=== PATIENT | male | born 1950 | race Caucasian/White ===

== ENCOUNTER 2020-04-12 13:01 | Outpatient (CLI) | payer OTHER, SELFPAY ==
[2020-04-14 13:04] LABS: COVID-19 RT-PCR Result NEGATIVE (Negative)
== END 2020-04-12 13:21 ==
PROVIDERS: PCP Family Medicine; Visit Provider Physician Assistant
DX: Z11.59 Encounter for screening for other viral diseases (principal)
CPT/HCPCS: U0003

== ENCOUNTER → 2020-12-26 11:27 | Outpatient (BNVA) | payer MEDICARE, SELFPAY | PROVIDERS: PCP Family Medicine; Referring Provider Family Medicine; Visit Provider Student in an Organized Health Care Education/Training Program | DX: S76.012A Strain of muscle, fascia and tendon of left hip, initial encounter (principal); X50.9XXA Other and unspecified overexertion or strenuous movements or postures, initial encounter; M16.0 Bilateral primary osteoarthritis of hip | CPT/HCPCS: 99204; 73502 ==

== ENCOUNTER 2020-12-26 13:33 | Outpatient (CLI) | payer MEDICARE, SELFPAY ==
--- NOTE | 2020-12-26 11:30 | DI.RAD_ITS ---
EXAM: XR HIP LT COMPLETE AP PELVIS CLINICAL HISTORY: hip pain TECHNIQUE: COMPARISON: No exams were available for comparison FINDINGS: Three views were obtained. There appears to be disc space narrowing at L4-5 and L5-S1 with prominent hypertrophic changes of the vertebral endplates and facet joints at these levels. There are mild-to -moderate degenerative changes of the SI joints bilaterally. There is severe loss of the cartilagino us joint space of the right hip and moderate loss of cartilaginous joint space of the left hip. Mode rate marginal osteophyte formation noted involving the acetabula and femoral heads bilaterally. Slig ht subchondral sclerosis also noted bilaterally associated with the hip joints. 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 RADIATION DOSE DELIVERED: Total DLP
== END 2020-12-26 13:34 | disposition home or self-care (01) ==
LOC: DIORS 13:34
PROVIDERS: PCP Family Medicine; Visit Provider Student in an Organized Health Care Education/Training Program
DX: M16.0 Bilateral primary osteoarthritis of hip (principal)
CPT/HCPCS: 73502

== ENCOUNTER 2021-01-05 11:41 | Outpatient (CLI) | payer MEDICARE, SELFPAY ==
--- NOTE | 2021-01-05 12:35 | DI.MRI_ITS ---
EXAM: MR LOWER JOINT LT WO CLINICAL HISTORY: left hip pain,STRAIN FLEXOR MUSCLE,S76.012A,M16.0,BILAT OA. TECHNIQUE: Multiplanar multisequence MRI was performed. COMPARISON: CR XR HIP LT COMPLETE AP PELVIS from 12/26/2020 FINDINGS: BONES: There is no fracture or contusion pattern. JOINTS: There are degenerative changes seen at the hips bilaterally with joint space narrowing, artic ular cartilage loss and subchondral edema. Periarticular spurring is also noted. There is a small a mount of fluid in the left hip joint. TENDONS:Unremarkable. There are 2 cyst associated with the distal aspect of the left iliopsoas tendon . The largest measures 1.8 x 1.2 cm cyst. MUSCLES: Muscles show normal signal and size. MENISCI: The medial meniscus is unremarkable. The lateral meniscus is unremarkable. SOFT TISSUES: No soft tissue mass or focal fluid collection is seen. There is a 1.7 cm dystrophic os sification anterior and lateral to the femoral head. This corresponds to the density seen on the x-r ay of the hip from 12/26/2020. It does show hyperintense signal on the T2 weighted images internally. There is mild edema seen in the adjacent soft tissues. LIGAMENTS:There is no evidence of a ligament tear. OTHER: IMPRESSION: 1. Degenerative changes of the hips bilaterally. 2. Two cysts associated with the distal aspect of the iliopsoas tendon. The largest measures 1.8 x 1 .2 cm. These may represent small ganglion cyst. No evidence of a tendon tear. 3. 1.7 cm dystrophic ossification anterior lateral to the left femoral head. This corresponds to the density seen on the x-ray of the hip from 12/26/2020. 4. Small left hip joint effusion. DATA REPOSITORY:
== END 2021-01-05 12:01 ==
PROVIDERS: PCP Family Medicine; Visit Provider Physician Assistant
DX: M25.552 Pain in left hip (principal); M25.452 Effusion, left hip; M16.0 Bilateral primary osteoarthritis of hip
CPT/HCPCS: 73721

== ENCOUNTER 2021-04-03 13:58 | Outpatient (CLI) | payer MEDICARE, SELFPAY ==
--- NOTE | 2021-04-03 13:45 | RT.EKG_ITS ---
APPROVED REPORT Exam: Resting ECG Reason for Exam: Irregular heart rate shown on self-monitor Patient Location: O HR:53 bpm ECG Measurements Heart Rate 53 AXIS WI 37 P 116 QRSd 92 QRS 41 QT 468 T 20 QTc 441 Conclusion Sinus bradycardia...rate< 60
== END 2021-04-03 13:59 | disposition home or self-care (01) ==
LOC: DI.CM 14:04
PROVIDERS: PCP Family Medicine; Visit Provider Family Medicine
DX: I49.9 Cardiac arrhythmia, unspecified (principal)
CPT/HCPCS: 93010

== ENCOUNTER 2021-04-03 18:26 | Outpatient (REF) | payer MEDICARE, SELFPAY ==
[2021-04-03 19:35] LABS: HCT 42.1 % (40.0-50.0); HGB 14.1 g/dL (13.5-17.5); MCH 31.3 pg (27.0-33.0); MCHC 33.5 % (32.0-36.0); MCV 93.3 fL (80-95); MPV 10.7 fL (8.0-11.0); Platelet Count 219 10^3/uL (130-400); RBC 4.51 10^6/uL (4.36-5.78); RDW 12.2 % (11.8-14.1); RDW-SD 42.3 fL; WBC 4.96 10^3/uL (4.4-10.8)
[2021-04-03 19:54] LABS: ALT 32 U/L (16-63); AST 27 U/L (15-37); Albumin 4.2 g/dL (3.4-5.0); Alkaline Phosphatase 69 U/L (46-116); Anion Gap 9.2 mmol/L (3-11); BUN 21 mg/dL (7-18); CO2 25.8 mmol/L (21.0-32.0); CREATININE 1.2 mg/dL (0.70-1.30); Calcium 8.9 mg/dL (8.5-10.1); Chloride 107 mmol/L (98-107); Estimated GFR 59.86 (mL/min/1.73m2); Glucose 90 mg/dL (74-106); Potassium 4.5 mmol/L (3.5-5.1); Sodium 142 mmol/L (136-145); Total Protein 6.7 g/dL (6.4-8.2)
== END 2021-04-03 18:27 | disposition home or self-care (01) ==
LOC: LBN 18:26
PROVIDERS: PCP Family Medicine; Visit Provider Family Medicine
DX: R42 Dizziness and giddiness (principal); I49.9 Cardiac arrhythmia, unspecified; I10 Essential (primary) hypertension
CPT/HCPCS: 80053; 85027; 84443

== ENCOUNTER 2021-04-10 03:25 | Outpatient (RCR) | payer MEDICARE, SELFPAY ==
--- NOTE | 2021-04-10 09:00 | HOLTER_ITS ---
APPROVED REPORT Conclusion This is a 48-hour monitor ordered for indication of arrhythmias. The patient was in normal sinus rhythm for the majority of the recording with an average heart rate o f 55 bpm. There were 0 episodes of ventricular tachycardia and rare PVCs. There was one episode of supraventricular tachycardia which lasted 6 beats. There were occasional (2 %) PACs. There were no episodes of atrial fibrillation and no pauses greater than 3 seconds. There were occasional episodes of benign second-degree Mobitz type I heart block. None of them were associated with symptoms. There was 1 patient triggered event associated with dizziness and shortness of breath for 30 seconds while climbing stairs. There was a single PVC noted during this time.
== END 2021-05-09 23:59 | disposition home or self-care (01) ==
LOC: RT 03:25
PROVIDERS: PCP Family Medicine; Visit Provider Family Medicine
DX: I49.8 Other specified cardiac arrhythmias (principal); I47.1 Supraventricular tachycardia; I49.1 Atrial premature depolarization; I44.1 Atrioventricular block, second degree; I49.3 Ventricular premature depolarization
CPT/HCPCS: 93227; 93225; 93226

== ENCOUNTER 2021-04-12 01:03 | Outpatient (CLI) | payer MEDICARE, SELFPAY ==
--- NOTE | 2021-04-12 14:01 | DI.US_ITS ---
APPROVED REPORT EXAM: Comprehensive 2D, Doppler, and color-flow Echocardiogram Patient Location: Out-Patient Indications: Arrhythmia, Lyme disease, abnormal ekg Other Information Study Quality: Adequate Conclusion Left Ventricle : The left ventricle is normal size. The left ventricular systolic function is normal. The left ventricular ejection fraction is within the normal range. There is normal left ventricular wall thickness. There is normal LV segmental wall motion. The left ventricular diastolic function is normal. LVEF is 60%. Right Ventricle : The right ventricle is normal size. The right ventricular systolic function is norm al. The RVSP is 21.7 mmHg. Atria : Left atrium is mildly dilated. Right atrium is borderline dilated. Mitral Valve : The mitral valve is normal in structure. No evidence of mitral valve stenosis. Mild mi tral regurgitation. Great Vessels : Aortic root is mildly dilated. The ascending aorta is mildly dilated. Aortic arch is normal in caliber. IVC is normal in size and collapses >50% with inspiration. Wall motion Left Ventricle The left ventricle is normal size. The left ventricular systolic function is normal. The left ventric ular ejection fraction is within the normal range. There is normal left ventricular wall thickness. T here is normal LV segmental wall motion. The left ventricular diastolic function is normal. There is no ventricular septal defect visualized. LVEF is 60%. Right Ventricle The right ventricle is normal size. The right ventricular systolic function is normal. The RVSP is 21 .7 mmHg. Atria Left atrium is mildly dilated. Right atrium is borderline dilated. The interatrial septum is intact w ith no evidence for an atrial septal defect. Aortic Valve The aortic valve is normal in structure. Aortic valve is trileaflet. There is no aortic valvular sten osis. No aortic regurgitation is present. Mitral Valve The mitral valve is normal in structure. No evidence of mitral valve stenosis. Mild mitral regurgitat ion. Tricuspid Valve The tricuspid valve is normal in structure. There is no tricuspid valve stenosis. Trace to mild tricu spid regurgitation. Pulmonic Valve The pulmonary valve is normal in structure. There is no pulmonic valvular stenosis. There is no pulmo david valvular regurgitation. Great Vessels Aortic root is mildly dilated. The ascending aorta is mildly dilated. Aortic arch is normal in calibe r. IVC is normal in size and collapses >50% with inspiration. Pericardium There is no pericardial effusion. 2D Dimensions IVSD d PLAX 1.05 cm M: 0.6-1.2 LV Vol A2C d MOD 110.8 mL LVPW d PLAX 1.06 cm M: 0.6 - 1.2 LV Vol A4C d MOD 156.4 mL LVID d PLAX 4.60 cm M: 4.2 - 5.8 LA vol/ BSA A2C s A-L 33.0 mL/m2 LVDs 3.15 cm M: 2.5 - 4.0 LA vol/ BSA A4C s A-L 36.8 mL/m2 Ao Root d 3.87 cm M: 3.1 - 3.7 LA Vol/ BSA Biplane s A-L 36.8 mL/m2 RA Area A4C 22.54 cm2 LA Area A4C s MOD 26.22 cm2 RA Vol/ BSA A4C s A-L 32.7 mL/m2 LA Area A2C s MOD 23.51 cm2 Ao Asc Diam d 3.78 cm M: 2.6 - 3.4 LV EF A4C MOD 61.1 % LV EF Teichholz 58.3 % LV EF A2C MOD 60.2 % LVEF (Crisostomo's) 61.20 % M: 52 - 72 LV EF Biplane MOD 61.2 % LV Volume 96.31 mL M: 62 - 150 SV 82.24 mL LV Volume Index 41.87 mL/m2 M: 34 - 74 SV Index 35.65 mL/m2 LV Vol Biplane MOD 134.4 mL FS 30.65 % M-Mode TAPSE 2.67 cm (M/F) >1.7 LV Diastology MV E' medial 0.065 (>0.07 m/s) E/A Ratio 1.5 LV E/e MED 11.60 (<14) MV E Vmax 0.75 (0.4-1.3 m/s) MV E' lateral 0.111 (>0.1 m/s) MV A Vmax 0.50 (0.4-1.3 m/s) LV E/e LAT 6.70 (<14) MV E/A Ratio 1.37 MV E/E' medial 11.62 MV E/E' lateral 6.73 Aortic Valve LVOT Area 4.10 cm2 AoV Area Vmax 3.67 cm2 LVOT Vmax 1.09 m/s AoV Area/ BSA (Vmax) 1.59 cm2/m2 LVOT Mean Naldo. 0.71 m/s RAYMUNDO Mean Naldo. 3.29 cm2 LVOT Peak Grad 4.7 mmHg RAYMUNDO Mean Naldo. Index 1.42 cm2/m2 LVOT Mean Grad 2.3 mmHg LVOT VTI 0.237 m LVOT Diam s 2.25 cm AoV Vmax 1.21 m/s Velocity Ratio 0.90 AoV Mean Naldo. 0.88 m/s AoV Peak Grad 5.9 mmHg LVOT SV 97.01 mL AoV Mean Grad 3.5 mmHg AoV VTI 0.266 m AoV Area VTI 3.65 cm2 AoV Area/ BSA (VTI) 1.58 cm/m2 Mitral Valve MV DT 218 (160-240 msec) MR Vmax 4.91 m/s MV PHT 63 msec MR VTI 1.580 m MV Area PHT 3.48 cm2 MR Peak Grad 96.6 mmHg MV VTI 0.288 m MR Mean Grad 60.5 mmHg MV VTI Annulus 0.288 m MR PISA Radius 0.52 cm MV Area VTI 3.37 (4.0-6.0 cm2) MR EROA 0.12 cm2 MR Aliasing Velocity 0.35 m/s MR PISA 1.73 cm2 Pulmonary Valve PV Vmax 0.87 (0.5-1.5 m/s) RVOT Peak Gr. 1.38 mmHg PV Peak Grad 3.0 mmHg RVOT Mean Gr. 0.65 mmHg PV Mean Grad 1.8 mmHg RVOT VTI 0.113 m PV VTI 0.152 m RVOT Vmax 0.59 m/s Tricuspid Valve TR Peak Grad 18.6 mmHg TR Vmax 2.16 m/s RA Pressure 3.00 mmHg RVSP (TR) 21.7 mmHg
== END 2021-04-12 01:23 ==
PROVIDERS: PCP Family Medicine; Visit Provider Family Medicine
DX: I49.8 Other specified cardiac arrhythmias (principal); A69.20 Lyme disease, unspecified; R94.31 Abnormal electrocardiogram [ECG] [EKG]; I34.0 Nonrheumatic mitral (valve) insufficiency; I77.810 Thoracic aortic ectasia
CPT/HCPCS: 93306

== ENCOUNTER 2022-02-08 01:32 | Outpatient (RCR) | payer MEDICARE, SELFPAY ==
--- NOTE | 2022-02-08 16:30 | HOLTER_ITS ---
APPROVED REPORT Conclusion This is a 48-hour Holter monitor ordered for arrhythmia Predominant rhythm was Mobitz 1 second-degree AV block (Wenckebach) Average heart rate was 48. Minimum was 34, maximum 77 Longest pause was 2.54 seconds The patient briefly had sinus rhythm at a rate of 44 which was associated with dizziness Periods of what appeared to be high-grade AV block also occurred. Heart rate briefly was approximate ly 20 during this episode There were occasional ventricular ectopic beats. Some of these were escape beats. There was a 14 be at run of accelerated idioventricular rhythm rate 48
== END 2022-03-09 23:59 | disposition home or self-care (01) ==
LOC: RT 01:32
PROVIDERS: PCP Family Medicine; Visit Provider Family Medicine
DX: I49.8 Other specified cardiac arrhythmias (principal); I44.1 Atrioventricular block, second degree; I49.3 Ventricular premature depolarization; I49.2 Junctional premature depolarization; I45.5 Other specified heart block
CPT/HCPCS: 93227; 93225; 93226

== ENCOUNTER 2022-02-18 12:52 | Emergency (ER) | payer MEDICARE, SELFPAY ==
[2022-02-18] VITALS (48 sets, daily range): BP systolic 125–167; BP diastolic 60–104; PULSE 37–100; RESP 11–26; TEMP 36.1; O2SAT 95–100
--- NOTE | 2022-02-18 12:45 | DI.RAD_ITS ---
Exam(s) XR CHEST 2V PA LATERAL EXAM: XR CHEST 2V PA LATERAL CLINICAL HISTORY: palpitations TECHNIQUE: 2D digital imaging was performed. COMPARISON: CT CHEST FOR PULMONARY EMBOLUS from 06/11/2017 FINDINGS: HEART: Mildly enlarged. Aorta tortuous. PULMONARY VASCULATURE: Normal. LUNGS: Clear. Mildly elevated left diaphragm with mild adjacent atelectasis. Lungs not well inflate d on the lateral view. No focal infiltrate. PLEURAL SPACE: No pleural effusion or pneumothorax. BONE:Degenerative changes of both shoulders. Disc osteophytes in the thoracic spine. IMPRESSION: No acute abnormality. DATA REPOSITORY: RADIATION DOSE DELIVERED:
--- NOTE | 2022-02-18 12:45 | RT.EKG_ITS ---
APPROVED REPORT Exam: Resting ECG Reason for Exam: block, lightheaded Patient Location: E HR:52 bpm ECG Measurements Heart Rate 52 AXIS WI 323 P 65 QRSd 102 QRS 22 QT 442 T 67 QTc 410 Conclusion Sinus bradycardia...rate< 60 Ventricular bigeminy...bigeminy string>4 w/ V complexes Sinus pause...long R-R interval, normal QRSd Aberrant complex...small R-R variation, aberrant QRS Prolonged WI interval...WI >220, V-rate 50- 90 Anterior infarct, old...Q >40mS, abnormal ST-T, V2-V5 possible high degree block. frequent PVCs. no STEMI.
[2022-02-18 13:17] LABS: Abs Immature Grans 0.03 10^3/uL (0.0-0.06); Absolute Basophil Count 0.06 10^3/uL (0.0-0.2); Absolute Eosinophil Count 0.04 10^3/uL (0.0-0.7); Absolute Lymphocyte Count 1.38 10^3/uL (1.2-3.4); Absolute Monocyte Count 0.84 10^3/uL (0.1-0.8); Absolute Neutrophil Count 3.41 10^3/uL (1.2-6.7); Eosinophils % 0.7; HCT 45.4 % (40.0-50.0); HGB 14.6 g/dL (13.5-17.5); Immature Grans % 0.5; MCH 30.4 pg (27.0-33.0); MCHC 32.2 % (32.0-36.0); MCV 94.6 fL (80-95); Monocytes % 14.6; Neutrophils % 59.2; Nucleated RBC 0 %; Platelet Count 194 10^3/uL (130-400); RDW-SD 45.5 fL; WBC 5.76 10^3/uL (4.4-10.8)
--- NOTE | 2022-02-18 13:29 | ED.GENADUL_ITS ---
Discharge Plan Disposition Patient Disposition: [facility] Discharge Details Chief Complaint: Dizzy/Sync Clinical Impression: Light headed, High degree atrioventricular block Primary Care Provider: Stephanie Colon ED Provider: Arianna Myles Home Meds and New Rx's Prescriptions: No Action cholecalciferol (vitamin D3) 1,000 UNIT capsule 1,000 unit PO DAILY 0RF tadalafil 10 mg tablet 10 mg PO DAILY Qty: 30 3RF Discharge Data Discharge Date/Time-TO BE ENTERED AT DEPARTURE: 02/18/22 18:00 Medical Decision Making Patient is a 71-year-old gentleman, accompanied by his , with chief complaint of heart block, dizziness and lightheadedness. Past medical history is pertinent for Lyme associated cardiomyopathy which is since resolved, recent diagnosis of arrhythmia on Holter monitor. Patient reports that over the past year she has had progressive exertional dyspnea that is been limiting his daily activities. Patient is quite physically active and has had to cut back on what he enjoys including walking around the golf [place], long walks with his complain basketball. States that he is still able to go to the gym but that she is hypersecretory what he can doing. Particular, he continues to walk on the treadmill and states that this gait is questioning to walk has also decreased. She reports that over the past several weeks he has began noticing increased episodes of lightheadedness. States things have become more significant more frequent often making him feel like he is going to pass out. He reports that this is typically exertional in days, finds it much more significant when he goes from sitting to standing position patient when he was trying to board and airplane recently. Denies any chest pain. However, when he is exerting himself he can have a neck fullness and tightness. He denies any nausea or vomiting. Has not had any syncopal episodes. No recent medication changes, no supplement changes. Patient wore a Holter monitor recently which was interrogated by cardiology on 02/08/2022: Conclusion This is a 48-hour Holter monitor ordered for arrhythmia Predominant rhythm was Mobitz 1 second-degree AV block (Wenckebach) Average heart rate was 48.? Minimum was 34, maximum 77 Longest pause was 2.54 seconds The patient briefly had sinus rhythm at a rate of 44 which was associated with dizziness Periods of what appeared to be high-grade AV block also occurred.? Heart rate briefly was approximately 20 during this episode There were occasional ventricular ectopic beats.? Some of these were escape beats.? There was a 14 beat run of accelerated idioventricular rhythm rate 48 Conclusion interval change from last summer when patient had occasional episodes of benign second-degree Mobitz type I heart block which was not associated with symptoms. At that time, the patient was in a normal sinus rhythm. Patient did undergo an echocardiogram on 04/12/21: Conclusion Left Ventricle : The left ventricle is normal size. The left ventricular systolic function is normal. The left ventricular ejection fraction is within the normal range. There is normal left ventricular wall thickness. There is normal LV segmental wall motion. The left ventricular diastolic function is normal. LVEF is 60%. Right Ventricle : The right ventricle is normal size. The right ventricular systolic function is normal. The RVSP is 21.7 mmHg. Atria : Left atrium is mildly dilated. Right atrium is borderline dilated. Mitral Valve : The mitral valve is normal in structure. No evidence of mitral valve stenosis. Mild mitral regurgitation. Great Vessels : Aortic root is mildly dilated. The ascending aorta is mildly dilated. Aortic arch is normal in caliber. IVC is normal in size and collapses >50% with inspiration. EKG reviewed by Dr. Griggs and myself. Concerning for high degree AV block. On the monitor it does appear that the patient intermittently can lead to but also has episodes where he appears to be in a Mobitz type II. Labs reviewed. Elevated K+, he reports no supplementation. Normal kidney function. States he drinks Power Aid? Otherwise labs unremarkable. Patient Covid negative. Chest x-ray reviewed by radiologist: FINDINGS: HEART: Mildly enlarged.? Aorta tortuous.? PULMONARY VASCULATURE: Normal. LUNGS: Clear.? Mildly elevated left diaphragm with mild adjacent atelectasis.? Lungs not well inflated on the lateral view.? No focal infiltrate. ? PLEURAL SPACE: No pleural effusion or pneumothorax. BONE:Degenerative changes of both shoulders.? Disc osteophytes in the thoracic spine. IMPRESSION: No acute abnormality.? There is mild enlargement is new compared to x-ray obtained in 2017. Patient is asymptomatic but continues to have high degree AV block. Again, rhythm strip appears to show changing degree of block. I am concerned about overall stability the patient based on this is progression of symptoms every weeks to months. Patient prefers care at [facility]. Consulted with Dr. Mcdowell with EP at [facility]. He advised patient will need pace maker. He agrees to accept the patient in transfer to facility this evening. Patient is remained asymptomatic, hemodynamically stable. Being transported EMS with concern for high degree block to [facility] for continued care with electrophysiology, likely pacer placement. I did discuss the risk/benefits as well as expected course with patient in agreement with plan. HPI General Date/Time Provider Initiated Documentation: 02/18/22 12:57 . Limitations to Documentation: no limitations and physical limitation . Information obtained by: patient, family () and RN notes reviewed . History of Present Illness 71 year old M presents to the emergency department with the chief complaint of presyncopal episodes, exertional fatigue, abnormal holter monitor, described as moderate, Quality is described as other (itermittent, progressive), Patient started experiencing this month(s) and it has been intermittent. improves with Immobilization improves symptom(s), (typically worse with exertion, starting to have sxs while more sedentary like driving) Movement worsens symptoms . Patient notes shortness of breath; denies chest pain, cough, diaphoresis, fever/chills, headaches, loss of appetite, nausea/vomiting, rash and syncope. Patient did receive the following treatments prior to arrival, other (assessed with Holterr by PCP recently) Related Data Home Medications Medication Instructions Recorded Confirmed cholecalciferol (vitamin D3) 25 1,000 unit PO DAILY 12/23/17 02/18/22 mcg (1,000 unit) capsule tadalafil 10 mg tablet 10 mg PO DAILY #30 tab 06/28/20 02/18/22 Previous Rx's Medication Instructions Recorded tadalafil 10 mg tablet 10 mg PO DAILY #30 tab 06/28/20 Allergies Allergy/AdvReac Type Severity Reaction Status Date / Time No Known Allergies Allergy Unverified 02/18/22 13:00 General Stated Complaint: Dizzy/Sync VISH: 2 Review of Systems Constitutional Constitutional: Reports as per HPI, Denies chills, Denies fever(s) and Denies lethargy ENT Ears, Nose, Mouth, and Throat: Reports dizziness (presyncopal episodes) Cardiovascular Cardiovascular: Reports as per HPI, Denies chest pain, Denies chest pain with activity, Denies syncope, Denies pedal edema, Reports lightheadedness, Denies radiating jaw, neck or arm pain, Reports dyspnea on exertion and Denies orthopnea Respiratory Respiratory: Reports as per HPI, Denies chest congestion, Denies cough, Denies pain on inspiration, Denies pain with cough, Reports dyspnea on exertion and Denies wheezing Gastrointestinal Gastrointestinal: Reports as per HPI, Denies abdominal pain, Denies nausea and Denies vomiting Genitourinary Genitourinary: Denies system reviewed and no additional complaints, except as documented (denies change in urinary habits) Musculoskeletal Musculoskeletal: Reports as per HPI and Denies back pain Integumentary/Breasts Skin/Breast: Reports as per HPI and Denies rash Neurologic Neurologic: Reports as per HPI, Reports dizziness (presyncopal episodes) and Denies syncope Allergic/Immunologic Allergic/Immunologic: Denies wheezing PFSH All Active Problems (Updated 02/21/22 @ 13:01 by ZACHARY Mccray) High degree atrioventricular block (Acute) Light headed (Acute) Arrhythmia (Acute) Strain of flexor muscle of left hip (Acute) Bilateral hip joint arthritis (Acute) Encounter for screening for other viral diseases (Acute) Medical History (Updated 02/21/22 @ 13:01 by ZACHARY Mccray) Acute Lyme disease (06/16/17) Congestive heart failure (06/16/17) Mitral valve regurgitation (06/11/17) MILD TO MODERATE;PULMONARY PRESSURES 30-40 mmHg Surgical History (Updated 06/18/17 @ 08:52 by Adelita Ruano) LUMBAR DISCECTOMY (~1987) [facility] Family History Mother Essential hypertension Father Heart disease HEART BLOCK Sister No problems noted. Sister No problems noted. Brother No problems noted. Grandfather Stroke Grandfather Heart disease Grandmother Alzheimer disease Grandmother No problems noted. Son No problems noted. Son No problems noted. Daughter No problems noted. Social History Smoking/Tobacco Use Status: Former Tobacco Use Smoking risk assessment performed?: Yes Substance use type: does not use Current gender identity: male Do you feel safe in your relationship?: Yes Exam Const General: cooperative, healthy appearing, comfortable, no acute distress and well developed Nutritional Appearance: average body habitus and well nourished Orientation: alert, awake and oriented x3 HENMT Head: normal to inspection Ears: hearing grossly normal bilaterally Mouth: moist mucous membranes Chest Chest: normal inspection of the chest, normal palpation of entire chest wall and no crepitus Resp Effort & Inspection: normal respiratory effort, able to speak in complete sentences and no respiratory distress Auscultation: clear to auscultation bilaterally, no rales, no rhonchi and no wheezes Cardio Rate: bradycardic Rhythm: abnormal rhythm irregularly irregular Heart Sounds: S1 normal and S2 normal GI Inspection: normal to inspection, no edema and non-distended Palpation: soft, no hepatosplenomegaly, not firm, no guarding, not rigid and nontender Auscultation: normal bowel sounds Back/Spine/Pelvis Back: no CVA tenderness Thoracic/Lumbar Spine: thoracic and lumbar spine normal to inspection Skin General skin exam: no rashes or lesions noted Trauma: no lacerations or abrasions Neuro General: patient alert, patient awake and patient oriented x3 Cognition: normal cognition Speech: speech normal Gait: normal gait Extrem General: normal to inspection, capillary refill normal, no pedal edema, no calf tenderness and normal gait Psych Appearance: grossly normal and well kempt Mental Status: mental status grossly normal Speech and Movement: speech and movement normal Course Vital Signs Vital signs: Vital Signs Temperature 36.1 C L 02/18/22 12:57 Pulse 56 L 02/18/22 12:57 Respiratory Rate 16 02/18/22 12:57 Blood Pressure 160/104 H 02/18/22 12:57 Pulse Oximetry 99 02/18/22 12:57 Temperature 36.1 C L 02/18/22 12:57 Temperature Source Skin 02/18/22 12:57 Pulse 56 L 02/18/22 12:57 Respiratory Rate 16 02/18/22 12:57 Respiratory Effort 02/18/22 12:57 Blood Pressure 160/104 H 02/18/22 12:57 Blood Pressure Position Sitting 02/18/22 12:57 Pulse Oximetry 99 02/18/22 12:57 Pain Level 0 02/18/22 12:57 Lab/Test Results Lab/Test Results: Laboratory Tests Range/Units 02/18/22 13:10 WBC (4.4-10.8) 10^3/uL 5.76 RBC (4.36-5.78) 10^6/uL 4.80 Hgb (13.5-17.5) g/dL 14.6 Hct (40.0-50.0) % 45.4 MCV (80-95) fL 94.6 MCH (27.0-33.0) pg 30.4 MCHC (32.0-36.0) % 32.2 RDW (11.8-14.1) % 13.0 Plt Count (130-400) 10^3/uL 194 MPV (8.0-11.0) fL 10.0 Immature Gran % 0.5 Neutrophils % 59.2 Lymphocytes % 24.0 Monocytes % 14.6 Eosinophils % 0.7 Basophils % 1.0 Nucleated RBC % % 0 Absolute Neutrophils (1.2-6.7) 10^3/uL 3.41 Absolute Lymphocytes (1.2-3.4) 10^3/uL 1.38 Absolute Monocytes (0.1-0.8) 10^3/uL 0.84 H Absolute Eosinophils (0.0-0.7) 10^3/uL 0.04 Absolute Basophils (0.0-0.2) 10^3/uL 0.06
[2022-02-18 13:30] LABS: INR 1.1 (0.9-1.1); PTT Activated 23.3 sec (21.0-27.5); Prothrombin Time 11.4 sec (9.3-11.0)
[2022-02-18 13:33] LABS: Source Nasal/Nares
[2022-02-18 13:41] LABS: ALT 28 U/L (16-63); AST 17 U/L (15-37); Albumin 4.3 g/dL (3.4-5.0); Alkaline Phosphatase 81 U/L (46-116); Anion Gap 6.4 mmol/L (3-11); BUN 23 mg/dL (7-18); Bilirubin, Total 1.1 mg/dL (0.2-1.0); CO2 29.6 mmol/L (21.0-32.0); CREATININE 1.1 mg/dL (0.70-1.30); Calcium 9.4 mg/dL (8.5-10.1); Chloride 105 mmol/L (98-107); Glucose 103 mg/dL (74-106); Magnesium 2.2 mg/dL (1.8-2.4); Potassium 5.5 mmol/L (3.5-5.1); Sodium 141 mmol/L (136-145); TSH (W/Ref FT4) 1.65 uIU/mL (0.36-3.74); Total Protein 7.4 g/dL (6.4-8.2); Troponin I < 50 ng/L (<or=60)
[2022-02-18 14:13] LABS: COVID-19 PCR Negative (Negative)
[2022-02-18 16:07] LABS: Troponin I < 50 ng/L (<or=60)
[2022-02-18] MEDS: Lactated Ringers 1,000 ML 200 ML IV (17:28)
== END 2022-02-18 18:00 ==
PROVIDERS: Emergency Provider Physician Assistant; PCP Family Medicine
DX: R42 Dizziness and giddiness (principal); I44.2 Atrioventricular block, complete; R06.09 Other forms of dyspnea; I49.9 Cardiac arrhythmia, unspecified
CPT/HCPCS: 36415; 80053; 87635; 93005; 99285; 71046; 83735; 84443; 84484; 85025; 85610; 85730; 93010

== ENCOUNTER → 2023-09-02 00:43 | Outpatient (CLI) | payer MEDICARE, SELFPAY ==
--- NOTE | 2023-09-02 | DI.US_ITS ---
Exam(s) US CAROTID EXAM: US CAROTID CLINICAL HISTORY: AMAUROSIS FUGAX BOTH EYES G45.3 VENTRICULAR TACHYCARDIA I47.29 HEART BLOCK. TECHNIQUE: Ultrasound carotids performed using grayscale, color-flow, and spectral Doppler imaging. COMPARISON: No exams were available for comparison FINDINGS: RIGHT CAROTID ARTERY: Plaque: Minimal. Velocity elevation: None. LEFT CAROTID ARTERY: Plaque: Minimal. Velocity elevation: None. VERTEBRAL ARTERIES: Antegrade flow. Measurements: R Bulb: 47.7cm/s PS / 11.8cm/s ED R CCA: 62.8cm/s PS / 20.6cm/s ED R ECA: 80.4cm/s PS / 22.2cm/s ED R ICA Prox: 40.7cm/s PS / 18.6cm/s ED R ICA Mid: 71.5cm/s PS / 29.1cm/s ED R ICA Distal: 76.7cm/s PS /33.4cm/s ED R Vert: 83.9cm/s PS / 30.2cm/s ED R SVR: 1.2 R DVR: 1.6 L Bulb: 58.1cm/s PS / 20.6cm/s ED L CCA: 70.3cm/s PS / 26cm/s ED L ECA: 86.9cm/s PS / 15.3cm/s ED L ICA Prox: 60.3cm/s PS / 23cm/s ED L ICA Mid: 61.1cm/s PS / 25.6cm/s ED L ICA Distal: 72.4cm/s PS / 35.2cm/s ED L Vert: 53.3cm/s PS / 26cm/s ED L SVR: 1 L DVR: 1.4 IMPRESSION: No evidence for hemodynamically significant carotid stenosis. Criteria for Carotid Stenosis: Normal: ICA PSV <125 cm/s no plaque or intimal thickening is visible. <50% stenosis: ICA PSV <125 cm/s and plaque or intimal thickening is visible. 50-69% stenosis: ICA PSV is 125-250 cm/s and plaque is visible. >70% stenosis to near occlusion: ICA PSV >250 cm/s with visible plaque and luminal narrowing. DATA REPOSITORY:
--- NOTE | 2023-09-02 08:45 | DI.NM_ITS ---
APPROVED REPORT Exam: Pharmacologic Patient Location: Out-Patient Room/Bed: Stress Nurse: Zuleyka Funk RN Ordering Provider:BRIANNE GARCÍA, Contact Number: [phone] BMI: 25.80 Baseline Rhythm: V paced Comment: Occasional PVC's Indications: BLACK Medical History Medical History: Lyme disease, CHF, mitral valve regurgitation, tachybradycardia syndome Cardiac Medications: Vitamin D3, tadalafil Allergies: NKA Cardiac Risk Factors: Family hx, former smoker Previous Cardiac Procedures: Pacemaker placement Pretest Chest Pain Characteristics: None Exercise History: Physically active Physical Disabilities: None Lung Sounds: Left slightly diminshed throughout, right clear to auscultation Heart Sounds: Regular Stress Test Details Test: Pharmacologic stress was paired with low level exercise. Reason for pharmacologic stress test: hx of LBBB, pacemaker. Nuclear Acquisition: Rest Tc-99m/Stress Tc-99m 1 day Rest Isotope: Tc-99m Sestamibi. Dose: 10.0 Date: 09/02/2023 Injection Time: 0900 Stress Isotope: Tc-99m Sestamibi. Dose: 31.0 Date: 09/02/2023 Injection Time: 1031 HR Resting HR Supine: 80 bpm Max Heart Rate (APMHR): 147.911560 bpm Resting HR Standin bpm Target HR (85% APMHR): 124.422320 bpm Max HR Achieved: 96 bpm % of APMHR: 65.31 Recovery HR: 79 bpm BP Resting BP Supine: 180/105 mmHg Resting BP Standin/102 mmHg Max BP: 160/104 mmHg Recovery BP: 150/102 mmHg ECG Resting ECG: Ventricular paced rhythm Ectopy: Occasional PVC's Stress ECG: Ventricular paced rhythm ST Change: Nondiagnostic low heart rate Arrhythmia: Occasional PVC's Recovery ECG: Ventricular paced rhythm Recovery ST Change: Nondiagnostic low heart rate Recovery Arrhythmia: Occasional PVC's Clinical Stress Symptoms: None Rate Pressure Product: [id number] Stress ECG Conclusion 1. Resting electrocardiogram showed an atrial sensed and ventricular paced rhythm 2. Patient underwent testing using a combination of low-level exercise and pharmacologic stress with regadenoson 3. The electrocardiographic portion of the test was nondiagnostic due to paced rhythm and inadequate heart rate 4. See MPI report MPI Conclusion Myocardial perfusion appears normal. There is no ischemia or evidence of prior infarction Calculated EF is 19%. Wall motion appears dyssynchronous Radiologist Interpretation Radiologist agrees with Professor Of Physical Education's Interpretation. Radiologist Interpretation by: Mery Reddy MD Interpretation Date/Time: 09/02/2023 15:45:22
[2023-09-02] MEDS: Regadenoson 0.4 MG/5 ML SYR IVP (12:43)
== END ==
PROVIDERS: PCP Family Medicine; Visit Provider Specialist
DX: G45.3 Amaurosis fugax (principal); R06.09 Other forms of dyspnea
CPT/HCPCS: 78452; 93016; 93018; 93017; 93880; J2785

== ENCOUNTER → 2023-09-03 00:56 | Outpatient (CLI) | payer MEDICARE, SELFPAY ==
--- NOTE | 2023-09-03 | DI.US_ITS ---
APPROVED REPORT EXAM: Comprehensive 2D, Doppler, and color-flow Echocardiogram Patient Location: Out-Patient Hand Twister: Chris Cuevas RDCS (AE) Indications: complete heart block, hypertension, nonsustained ventricular tachycardia, amaurosis fuga x both eyes Conclusion Mild concentric left ventricular hypertrophy. Ejection fraction is 55%. Wall motion is normal Normal right ventricular size and systolic function Both atria are moderately dilated Device lead noted in the right heart Normal mitral valve with mild regurgitation Right ventricular systolic pressure could not be estimated Wall motion Left Ventricle The left ventricle is normal size. The left ventricular systolic function is normal. The left ventric ular ejection fraction is within the normal range. Mild concentric left ventricular hypertrophy. Ther e is normal LV segmental wall motion. There is no ventricular septal defect visualized. LVEF is 55-60 %. Right Ventricle The right ventricle is normal size. The right ventricular systolic function is normal. Unable to asse ss PA pressure. Pacemaker lead is present in the right ventricle. Atria Left atrium is moderately dilated. Right atrium is moderately dilated. The interatrial septum is inta ct with no evidence for an atrial septal defect. Aortic Valve The aortic valve is normal in structure. Aortic valve is trileaflet. There is no aortic valvular sten osis. No aortic regurgitation is present. Mitral Valve The mitral valve is normal in structure. No evidence of mitral valve stenosis. Mild mitral regurgitat ion. Tricuspid Valve The tricuspid valve is normal in structure. There is no tricuspid valve stenosis. Trace tricuspid reg urgitation. Pulmonic Valve The pulmonary valve is normal in structure. There is no pulmonic valvular stenosis. There is no pulmo david valvular regurgitation. Great Vessels The aortic root is normal in size. Ascending aorta is not well visualized. Aortic arch is normal in c aliber. IVC is normal in size and collapses >50% with inspiration. Pericardium There is no pericardial effusion. 2D Dimensions IVSD d PLAX 1.36 cm M: 0.6-1.2 Ao Root d 3.76 cm M: 3.1 - 3.7 LVPW d PLAX 1.30 cm M: 0.6 - 1.2 LVID d PLAX 4.61 cm M: 4.2 - 5.8 LVDs 3.29 cm M: 2.5 - 4.0 LV EF Teichholz 55.3 % FS 28.69 % LV EDV (Teich) 97.9 mL LV ESV (Teich) 43.8 mL Stroke Vol Index (Teich) 23.85 M-Mode TAPSE 2.17 cm (M/F) >1.7 Auto EF LV EDV A4C 141.7 mL LV EDV A2C 144.9 mL LV EDV BP 145.0 mL LV ESV A4C 64.5 mL LV ESV A2C 60.0 mL LV ESV BP 63.1 mL LVEF(%) A4C 54.5 % LVEF(%) A2C 58.6 % LVEF(%) BP 56.5 % LV SV A4C 77.2 ml LV SV A2C 84.9 ml LV SV BP 81.9 ml LV CO A4C 6.1 L/min LV CO A2C 6.6 L/min LV CO BP 6.3 L/min HR A4C 78.61 BPM HR A2C 77.59 BPM LV EDV Index (BP) LA Volume LA Length A4C 6.2 cm LA Length A2C LA Area A4C s 21.21 cm2 LA Area A2C s LA Vol A4C A-L 61.19 mL LA Vol A2C A-L LA Vol Biplane A-L LA Vol A4C MOD 57.9 mL LA Vol A2C MOD LA Vol BP MOD RA Volume RA Area A4C 28.7 cm2 RA ESV A4C (A-L) 115.3mL RA Vol/BSA A4C A-L RA Length A4C 6.1 cm RA ESV A4C (MOD) 116.6mL LV Diastology MV E' medial 0.056 (>0.07 m/s) MV E Vmax 0.66 (0.4-1.3 m/s) MV E/E' MED 11.76 (<14) MV A Vmax 0.50 (0.4-1.3 m/s) MV E' lateral 0.082 (>0.1 m/s) E/A Ratio 1.3 MV E/E' LAT 8.05 (<14) MV E' Average 0.069 m/s MV E/E'(average) 9.56 Aortic Valve AoV Vmax 1.33 m/s LVOT Vmax 1.27 m/s AoV Peak Grad 7.0 mmHg LVOT Peak Grad 6.5 mmHg AoV Area (Vmax) 3.53 cm2 LVOT VTI 0.252 m AoV VTI 0.274 m LVOT Mean Grad 3.6 mmHg AoV Mean Naldo. 0.92 m/s LVOT SV 92.65 mL AoV Mean Grad 3.9 mmHg LVOT Diam s 2.15 cm AoV Area (VTI) 3.38 cm2 Velocity Ratio 0.95 Mitral Valve MV DT 172 (160-240 msec) MV Vmax TIPS 0.68 m/s MV Mean Grad 1.0 (<2mmHg) MV VTI 0.182 m Pulmonary Valve PV Vmax 0.74 (0.5-1.5 m/s) RVOT Vmax 0.58 m/s PV Peak Grad 2.2 mmHg RVOT Peak Gr. 1.3 mmHg PV Mean Naldo 0.47 m/s RVOT VTI 0.114 m PV Mean Grad 1.0 mmHg RVOT Mean Gr. 0.8 mmHg
== END ==
PROVIDERS: PCP Family Medicine; Visit Provider Specialist
DX: I10 Essential (primary) hypertension (principal)
CPT/HCPCS: 93016; 93018; 93306

== ENCOUNTER 2024-05-10 08:58 | Outpatient (CLI) | payer MEDICARE, SELFPAY ==
[2024-05-10 12:45] LABS: ALT 24 U/L (16-63); AST 20 U/L (15-37); Albumin 3.9 g/dL (3.4-5.0); Alkaline Phosphatase 91 U/L (46-116); Anion Gap 7.1 mmol/L (3-11); BUN 20 mg/dL (7-18); Bilirubin, Total 0.92 mg/dL (0.2-1.0); CO2 29.9 mmol/L (21.0-32.0); CREATININE 1.2 mg/dL (0.70-1.30); Calcium 9.4 mg/dL (8.5-10.1); Calculated LDL 102 mg/dL (<100); Chloride 107 mmol/L (98-107); Cholesterol 172 mg/dL (<200); Estimated GFR 63.46 (mL/min/1.73m2); Glucose 101 mg/dL (74-106); HDL Cholesterol 60 mg/dL (40-60); Potassium 4.7 mmol/L (3.5-5.1); Sodium 144 mmol/L (136-145); Triglyceride 51 mg/dL (<150)
[2024-05-10 19:48] LABS: Hepatitis C Ab w Rflx HCV PCR Negative (Negative)
== END 2024-05-10 08:59 | disposition home or self-care (01) ==
LOC: LOS 08:58
PROVIDERS: PCP Family Medicine; Referring Provider Family Medicine; Visit Provider Family Medicine
DX: Z11.59 Encounter for screening for other viral diseases (principal); I10 Essential (primary) hypertension; Z13.6 Encounter for screening for cardiovascular disorders
CPT/HCPCS: 36415; 80053; 80061; 86803

== ENCOUNTER 2024-06-16 14:11 | Emergency (ER) | payer MEDICARE, SELFPAY ==
[2024-06-16] VITALS (25 sets, daily range): BP systolic 64–196; BP diastolic 35–116; PULSE 72–93; RESP 12–29; TEMP 36.9–37.1; O2SAT 96–99
--- NOTE | 2024-06-16 14:15 | RT.EKG_ITS ---
APPROVED REPORT Exam: Resting ECG Reason for Exam: weakness Patient Location: E HR:71 bpm ECG Measurements Heart Rate 71 AXIS NV 209 P 82 QRSd 123 QRS 57 QT 418 T 225 QTc 455 Conclusion Atrial-sensed ventricular-paced rhythm...ventricular pacing tracks p-waves Physician: no stemi, paced
[2024-06-16 14:36] LABS: Abs Immature Grans 0.05 10^3/uL (0.0-0.06); Absolute Basophil Count 0.06 10^3/uL (0.0-0.2); Absolute Eosinophil Count 0.03 10^3/uL (0.0-0.7); Absolute Lymphocyte Count 0.88 10^3/uL (1.2-3.4); Absolute Monocyte Count 0.58 10^3/uL (0.1-0.8); Absolute Neutrophil Count 5.84 10^3/uL (1.2-6.7); Basophils % 0.8 %; Eosinophils % 0.4 %; HCT 42.2 % (40.0-50.0); HGB 13.8 g/dL (13.5-17.5); Immature Grans % 0.7 %; Lymphocytes % 11.8 %; MCH 30.9 pg (27.0-33.0); MCHC 32.7 % (32.0-36.0); MCV 94 fL (80-95); MPV 9.6 fL (8.0-11.0); Monocytes % 7.8 %; Neutrophils % 78.5 %; Platelet Count 217 10^3/uL (130-400); RBC 4.47 10^6/uL (4.36-5.78); RDW 12.3 % (11.8-14.1); RDW-SD 43.2 fL; WBC 7.44 10^3/uL (4.4-10.8)
[2024-06-16 14:51] LABS: INR 1.2 (0.9-1.1); PTT Activated 24.2 sec (23.6-32.8); Prothrombin Time 11.6 sec (9.1-11.1)
--- NOTE | 2024-06-16 14:54 | ED.GENADUL_ITS ---
Discharge Plan Discharge Details Chief Complaint: GenMedical Primary Care Provider: Stephanie Colon ED Provider: Silverio Prajapati Home Meds and New Rx's Prescriptions: No Action tadalafil 10 mg tablet 10 mg PO DAILY Qty: 90 3RF losartan 50 mg tablet 50 mg PO DAILY Qty: 90 4RF cholecalciferol (vitamin D3) 1,000 UNIT capsule 1,000 unit PO DAILY HPI General Date/Time Provider Initiated Documentation: 06/16/24 14:25 . HPI Narrative: 74-year-old male with a past medical history of hypertension on losartan, a pacemaker secondary to heart block, spinal stenosis, arthritis, who presents today for evaluation of weakness and lightheadedness. Patient states that for the last month he has noted some back achiness and stiffness and a decrease in strength and stamina during episodes of exertion. Seems to be somewhat intermittent. He performs a workout every morning, and he has noticed that during some of his cardio activities he has had a notably diminished capability. This is coming gone in frequency, and does not appear to be totally consistent. He has also had episodes where he will have some blurry vision but no significant or severe lightheadedness. The vision is just global blurriness, no tunnel vision or color change. Usually during these episodes he will also note the increased neck and back stiffness/achiness. Additionally usually for the symptoms if he stops and lies down the back achiness, the exhaustion, and the blurriness will resolve over few minutes. He was started on losartan for hypertension about a month ago as well and has been taking this as directed. Today while out golfing he noticed all of the symptoms and they were notably m ore pronounced than they had been in the past. He was lightheaded, he was drifting somewhat while driving, and he was having a hard time completing his golf game. Because of the node ability of the symptoms, he did come to the ER for further assessment. He denies any complete syncope. He denies any central or anterior chest pain. He denies any history of blood clots or strokes or diabetes. No other complaints at this time. No other modifying factors. Related Data Home Medications ?Medication ?Instructions ?Recorded ?Confirmed cholecalciferol (vitamin D3) 25 1,000 unit PO DAILY 12/23/17 05/10/24 mcg (1,000 unit) capsule losartan 50 mg tablet 50 mg PO DAILY #90 tabs 05/10/24 05/10/24 tadalafil 10 mg tablet 10 mg PO DAILY #90 tabs 05/10/24 05/10/24 Previous Rx's ?Medication ?Instructions ?Recorded losartan 50 mg tablet 50 mg PO DAILY #90 tabs 05/10/24 tadalafil 10 mg tablet 10 mg PO DAILY #90 tabs 05/10/24 Allergies Allergy/AdvReac Type Severity Reaction Status Date / Time No Known Allergies Allergy Unverified 05/10/24 08:16 General Stated Complaint: GenMedical VISH: 3 Review of Systems All systems reviewed & are unremarkable except as noted in HPI and below Exam Narrative Exam Narrative: 1.Const: Well-nourished, Well-developed, appearing stated age 2.Eyes: PERRL, no conjunctival injection, and symmetrical lids. 3.ENT: Atraumatic external nose and ears. Dry MM. Neck: Symmetric, trachea midline, No thyromegaly. 4.CVS: +S1/S2, No murmurs or gallops. Peripheral pulses 2+ and equal in all extremities. Brisk capillary refill in all extremities. 5.RESP: Unlabored respiratory effort. Clear to auscultation bilaterally. No wheezes rales or rhonchi 6.GI: Soft, Nontender/Nondistended, No hepatosplenomegaly. No guarding or rebound. 7.MSK: Normocephalic/Atraumatic, Extremities w/o deformity or ttp No cyanosis or clubbing, Normal movement of all extremities 8.Skin: Warm, Dry. No rashes or lesions. 9.Neuro: grill associate II-XII grossly intact. Sensation grossly intact, no focal neurologic deficits. 10.Psych: (AAO) x3. Appropriate mood and affect Course Vital Signs Vital signs: Vital Signs Temperature 36.9 C 06/16/24 14:20 Pulse 78 06/16/24 14:20 Respiratory Rate 12 06/16/24 14:20 Blood Pressure 64/35 L 06/16/24 14:20 Pulse Oximetry 98 06/16/24 14:20 Temperature 36.9 C 06/16/24 14:20 Temperature Source Skin 06/16/24 14:20 Pulse 78 06/16/24 14:20 Respiratory Rate 12 06/16/24 14:20 Blood Pressure 64/35 L 06/16/24 14:20 Blood Pressure Position Sitting 06/16/24 14:20 Pulse Oximetry 98 06/16/24 14:20 Oxygen Delivery Method Room Air 06/16/24 14:20 Oxygen Flow Rate 0 06/16/24 14:20 Pain Level 4 06/16/24 14:20 Lab/Test Results Lab/Test Results: Laboratory Tests Range/Units 06/16/24 14:30 WBC (4.4-10.8) 10^3/uL 7.44 RBC (4.36-5.78) 10^6/uL 4.47 Hgb (13.5-17.5) g/dL 13.8 Hct (40.0-50.0) % 42.2 MCV (80-95) fL 94 MCH (27.0-33.0) pg 30.9 MCHC (32.0-36.0) % 32.7 RDW (11.8-14.1) % 12.3 Plt Count (130-400) 10^3/uL 217 MPV (8.0-11.0) fL 9.6 Immature Gran % % 0.7 Neutrophils % % 78.5 Lymphocytes % % 11.8 Monocytes % % 7.8 Eosinophils % % 0.4 Basophils % % 0.8 Nucleated RBC % (0.0-0.3) % 0.0 Absolute Neutrophils (1.2-6.7) 10^3/uL 5.84 Absolute Lymphocytes (1.2-3.4) 10^3/uL 0.88 L Absolute Monocytes (0.1-0.8) 10^3/uL 0.58 Absolute Eosinophils (0.0-0.7) 10^3/uL 0.03 Absolute Basophils (0.0-0.2) 10^3/uL 0.06 PT (9.1-11.1) sec 11.6 H INR (0.9-1.1) 1.2 H APTT (23.6-32.8) sec 24.2 VBG Lactate (0.6-1.4) mmol/L 3.0 H* Medical Decision Making 74-year-old male with a past medical history of hypertension on losartan, a pacemaker secondary to heart block, spinal stenosis, arthritis, who presents today for evaluation of weakness and lightheadedness. Patient states that for the last month he has noted some back achiness and stiffness and a decrease in strength and stamina during episodes of exertion. Seems to be somewhat intermittent. He performs a workout every morning, and he has noticed that during some of his cardio activities he has had a notably diminished capability. This is coming gone in frequency, and does not appear to be totally consistent. He has also had episodes where he will have some blurry vision but no significant or severe lightheadedness. The vision is just global blurriness, no tunnel vision or color change. Usually during these episodes he will also note the increased neck and back stiffness/achiness. Additionally usually for the symptoms if he stops and lies down the back achiness, the exhaustion, and the blurriness will resolve over few minutes. He was started on losartan for hypertension about a month ago as well and has been taking this as directed. Today while out golfing he noticed all of the symptoms and they were notably more pronounced than they had been in the past. He was lightheaded, he was drifting somewhat while driving, and he was having a hard time completing his golf game. Because of the node ability of the symptoms, he did come to the ER for further assessment. He denies any complete syncope. He denies any central or anterior chest pain. He denies any history of blood clots or strokes or diabetes. No other complaints at this time. No other modifying factors. Physical exam demonstrates a well-appearing male, neurologic assessment normal. On the patient's arrival to the emergency department his blood pressure was in the 60s systolic consistently. Heart rate was stable. Concern for hypotensive shock. Patient was given a liter of IV fluid rapidly and blood pressure improved to the 120 systolic after about 15 to 20 minutes. Radial pulses are equal bilaterally. No calf swelling or tenderness. Differential is broad but includes atypical unstable angina, PE or dissection is certainly on the differential but less likely. Dehydration, or an iatrogenic component from his losartan is of concern as well. Cardiac dysrhythmia is potential however this appears less likely given his EKG findings. We will monitor closely, evaluate for these concerning etiologies and reassess. Limited bedside echo shows evidence of ejection fraction around 55%. No major wall motion abnormalities however I do have slight difficulty visualizing the apex itself. Review of prior echo demonstrates ejection fraction of 55% on echo from 09/03/2023 5:02 PM On reassessment patient is feeling much better. Vital signs are all normal post fluid bolus, patient feels well and at baseline. CT of the chest head and neck are negative for acute process, no dissection, saddle embolus, or other acute abnormality, CT scan of the brain shows no bleed stroke or other significant abnormality. Laboratory workup is notably benign, troponin normal, no white count bandemia or left shift. Creatinine slightly up at 1.6, GFR 44, lactate is elevated at 3 though, however no evidence of urinary tract infection, pneumonia or other infectious etiology. Procalcitonin normal, thyroid function normal. With the benign EKG, normal troponin, normal workup so far I do not see any evidence of acute life-threatening etiology like dissection, PE, ACS, or sepsis. I do wonder if the losartan is a component of the cause of his symptoms. He does state that there is seem to be an notable exacerbation of the symptoms once he started losartan. Think it would be very reasonable to potentially hold the medication for trial. Or cut down to half dose. Regardless patient is notably clinically improved and stable at this time. We are still pending repeat troponin and lactate. Patient will be signed out to my colleague Dr. Can Conley for follow-up on these. Patient otherwise remained stable at this time. FINDINGS: Pulmonary Arteries: Pulmonary arteries are suboptimally opacified. The lower lobe branches are also limited by motion. There is streak artifact relation to greater arm position. No gross evidence of filling defect to suggest large pulmonary emboli. Tracheobronchial tree: No mucous plugging. Mediastinum and Anna: No dominant adenopathy or fluid collection. Pulmonary parenchyma: No consolidation or dominant measurable mass. Lungs suboptimally evaluated due to expiratory changes and respiratory motion. Pleura: No effusion or pneumothorax. Heart: Mild left atrial dilatation. Moderate coronary artery calcifications are seen. Aorta: Thoracic aorta non-dilated. No dissection. Minimal atherosclerotic changes. Upper abdomen: No acute findings. Bones: No compression fractures. Prominent endplate osteophytes. Tubes, Catheters, and Lines: Pacemaker. Soft tissues: Unremarkable. IMPRESSION: No evidence of aortic dissection. Evaluation of the pulmonary arteries somewhat limited by suboptimal contrast bolus timing. Limited evaluation of the lungs due to motion and expiratory changes FINDINGS: CT Head W/O and W contrast: Ventricles and Extra axial spaces: Normal in size and morphology for the patient's age. Hemorrhage: None. Cerebral parenchyma: No evidence of acute infarct or mass. Midline shift: None. Brainstem/Cerebellum: No acute findings.. Calvarium: Normal. Visualized Paranasal sinuses/Mastoids: Clear. Soft Tissues: Unremarkable. Enhancement: Normal. Orbits: Old fracture medial right orbital wall. CTA Brain W: Internal Carotid Arteries: Petrous: Normal. Cavernous: Normal. Cerebral: Normal. Middle Cerebral Arteries: Right: No aneurysm, occlusion or significant stenosis. Left: No aneurysm, occlusion or significant stenosis. Anterior Cerebral Arteries: Right: No aneurysm, occlusion or significant stenosis. Left: No aneurysm, occlusion or significant stenosis. Posterior cerebral Arteries: Right: No aneurysm, occlusion or significant stenosis. Left: No aneurysm, occlusion or significant stenosis. Vertebral Arteries: Right: No aneurysm, occlusion or significant stenosis. Left: No aneurysm, occlusion or significant stenosis. Basilar Artery: No aneurysm, occlusion or significant stenosis. CTA Neck W: Common Carotid: Right: Minimal calcific plaque at bulb. No dissection, occlusion or significant stenosis. Left: Mild mixed plaque at bulb no dissection, occlusion or significant stenosis. External Carotid: Right: No dissection, occlusion or significant stenosis. Left: No dissection, occlusion or significant stenosis. Internal Carotid: Right: No dissection, occlusion or significant stenosis. Left: No dissection, occlusion or significant stenosis. Vertebral Artery: Right: No dissection, occlusion or significant stenosis. Left: No dissection, occlusion or significant stenosis. Lung Apices: No acute findings. Bones: No acute abnormality. Severe degenerative changes in the cervical spine. Soft Tissues: Normal. IMPRESSION: 1. CTA brain: Normal CTA examination of the [place]. 2. Head CT: Unremarkable CT Head. 3. CTA neck: Mild plaque at the common carotid bulbs but no significant stenosis. Quality:SDOH Health Related Social Needs: No Data to Display PFSH All Active Problems Hypertension (Chronic) Pacemaker (Acute) Light headed (Acute) Arrhythmia (Acute) Strain of flexor muscle of left hip (Acute) Bilateral hip joint arthritis (Acute) Encounter for screening for other viral diseases (Acute) Medical History Acute Lyme disease (06/16/17) Congestive heart failure (06/16/17) Mitral valve regurgitation (06/11/17) MILD TO MODERATE;PULMONARY PRESSURES 30-40 mmHg Surgical History LUMBAR DISCECTOMY (~1987) [facility] Family History Mother Essential hypertension Father Heart disease HEART BLOCK Sister No problems noted. Sister No problems noted. Brother No problems noted. Grandfather Stroke Grandfather Heart disease Grandmother Alzheimer disease Grandmother No problems noted. Son No problems noted. Son No problems noted. Daughter No problems noted. Social History Smoking/Tobacco Use Status: Former Tobacco Use Tobacco: How many years used: 30 Smokeless tobacco user: other Quit status: quit date established Smoking risk assessment performed?: Yes Substance use type: does not use Current gender identity: male Do you feel safe in your relationship?: Yes POCUS Exam (ED) Limited Cardiac Exam DATE OF EXAM: 06/16/24 TIME OF EXAM: 15:17 PROVIDER THAT PERFORMED THE STUDY: Silverio Prajapati IS THIS A REPEAT EXAM DURING THIS ENCOUNTER: no REASON FOR EXAM: Hypotension VISUALIZED STRUCTURES: Left atrium, Left ventricle, Right ventricle, Mitral valve and Interventricular septum VIEW OBTAINED: Parasternal long-axis PERTINENT FINDINGS/IMPRESSION: No apparent abnormalities (EF appears to be 50%) Exam complete
[2024-06-16] MEDS: Lactated Ringers 1,000 ML 1000 ML IV (14:57)
[2024-06-16 15:13] LABS: Procalcitonin < 0.1 ng/mL
[2024-06-16 15:18] LABS: ALT 26 U/L (16-63); AST 20 U/L (15-37); Alkaline Phosphatase 92 U/L (46-116); Anion Gap 11.8 mmol/L (3-11); BUN 27 mg/dL (7-18); CO2 23.2 mmol/L (21.0-32.0); CREATININE 1.6 mg/dL (0.70-1.30); Calcium 9.4 mg/dL (8.5-10.1); Chloride 104 mmol/L (98-107); Estimated GFR 44.93 (mL/min/1.73m2); Glucose 124 mg/dL (74-106); NT-proBNP 1929 pg/mL (<300); Potassium 4.6 mmol/L (3.5-5.1); Sodium 139 mmol/L (136-145); TSH (W/Ref FT4) 1.34 uIU/mL (0.36-3.74); Total Protein 7.1 g/dL (6.4-8.2); Troponin I 50 ng/L (< or =60)
[2024-06-16] MEDS: Omnipaque 350 MG/ML 100 ML BTL IJ (15:35)
[2024-06-16] MEDS: Omnipaque 350 MG/ML 50 ML BTL 100 ML IJ ×2 (15:37→15:41)
[2024-06-16] MEDS: Normal Saline - Diluent 50 ML VIAL IV (15:39)
--- NOTE | 2024-06-16 15:40 | DI.CT_ITS ---
Exam(s) CT BRAIN NECK CTA EXAM: CT BRAIN NECK CTA CLINICAL HISTORY: weak, light headed, near syncope. TECHNIQUE: Imaging Protocol: Axial CT angiography was performed with multi-slice acquisition and mu lti-planar and MIP reconstructions. CONTRAST MATERIAL: Intravenous: Omnipaque 350 Contrast volume:70 ml COMPARISON: CT HEAD WITHOUT CONTRAST from 06/02/2017 FINDINGS: CT Head W/O and W contrast: Ventricles and Extra axial spaces: Normal in size and morphology for the patient's age. Hemorrhage: None. Cerebral parenchyma: No evidence of acute infarct or mass. Midline shift: None. Brainstem/Cerebellum: No acute findings.. Calvarium: Normal. Visualized Paranasal sinuses/Mastoids: Clear. Soft Tissues: Unremarkable. Enhancement: Normal. Orbits: Old fracture medial right orbital wall. CTA Brain W: Internal Carotid Arteries: Petrous: Normal. Cavernous: Normal. Cerebral: Normal. Middle Cerebral Arteries: Right: No aneurysm, occlusion or significant stenosis. Left: No aneurysm, occlusion or significant stenosis. Anterior Cerebral Arteries: Right: No aneurysm, occlusion or significant stenosis. Left: No aneurysm, occlusion or significant stenosis. Posterior cerebral Arteries: Right: No aneurysm, occlusion or significant stenosis. Left: No aneurysm, occlusion or significant stenosis. Vertebral Arteries: Right: No aneurysm, occlusion or significant stenosis. Left: No aneurysm, occlusion or significant stenosis. Basilar Artery: No aneurysm, occlusion or significant stenosis. CTA Neck W: Common Carotid: Right: Minimal calcific plaque at bulb. No dissection, occlusion or significant stenosis. Left: Mild mixed plaque at bulb no dissection, occlusion or significant stenosis. External Carotid: Right: No dissection, occlusion or significant stenosis. Left: No dissection, occlusion or significant stenosis. Internal Carotid: Right: No dissection, occlusion or significant stenosis. Left: No dissection, occlusion or significant stenosis. Vertebral Artery: Right: No dissection, occlusion or significant stenosis. Left: No dissection, occlusion or significant stenosis. Lung Apices: No acute findings. Bones: No acute abnormality. Severe degenerative changes in the cervical spine. Soft Tissues: Normal. IMPRESSION: 1. CTA brain: Normal CTA examination of the [place]. 2. Head CT: Unremarkable CT Head. 3. CTA neck: Mild plaque at the common carotid bulbs but no significant stenosis. RADIATION DOSE DELIVERED: Total DLP DATA REPOSITORY: All CT scans at this facility are submitted to the National Radiology Data Registry (NRDR) Dose Index Registry (DIR) with the [employer] (ACR). RADIATION OPTIMIZATION: All CT scans at this facility use at least one of these dose optimization te chniques: automated exposure control; mA and/or kV adjustment per patient size (includes targeted exa ms where dose is matched to clinical indication); or iterative reconstruction.
--- NOTE | 2024-06-16 16:00 | DI.CT_ITS ---
Exam(s) CT CHEST PE CTA EXAM: CT CHEST PE CTA CLINICAL HISTORY: chest and back pain, near syncope, eval for PE/dis. TECHNIQUE: Imaging Protocol: Axial CT angiography was performed with multi-slice acquisition and mu lti-planar reconstructions as well as axial, coronal and sagittal MIP reconstructions. CONTRAST MATERIAL: Intravenous: Omnipaque 350 Contrast volume:70 ml COMPARISON: CT CHEST FOR PULMONARY EMBOLUS from 06/11/2017 CR XR CHEST 2V PA LATERAL from 02/18/2022 FINDINGS: Pulmonary Arteries: Pulmonary arteries are suboptimally opacified. The lower lobe branches are also limited by motion. There is streak artifact relation to greater arm position. No gross evidence of filling defect to suggest large pulmonary emboli. Tracheobronchial tree: No mucous plugging. Mediastinum and Anna: No dominant adenopathy or fluid collection. Pulmonary parenchyma: No consolidation or dominant measurable mass. Lungs suboptimally evaluated du e to expiratory changes and respiratory motion. Pleura: No effusion or pneumothorax. Heart: Mild left atrial dilatation. Moderate coronary artery calcifications are seen. Aorta: Thoracic aorta non-dilated. No dissection. Minimal atherosclerotic changes. Upper abdomen: No acute findings. Bones: No compression fractures. Prominent endplate osteophytes. Tubes, Catheters, and Lines: Pacemaker. Soft tissues: Unremarkable. IMPRESSION: No evidence of aortic dissection. Evaluation of the pulmonary arteries somewhat limited by suboptima l contrast bolus timing. Limited evaluation of the lungs due to motion and expiratory changes. RADIATION DOSE DELIVERED: Total DLP DATA REPOSITORY: All CT scans at this facility are submitted to the National Radiology Data Registry (NRDR) Dose Index Registry (DIR) with the [employer] (A[employer]). RADIATION OPTIMIZATION: All CT scans at this facility use at least one of these dose optimization te chniques: automated exposure control; mA and/or kV adjustment per patient size (includes targeted exa ms where dose is matched to clinical indication); or iterative reconstruction.
[2024-06-16 16:23] LABS: Bilirubin Negative (Negative); Blood Moderate (Negative); Clarity Clear (Clear); Glucose Negative (Negative); Ketones Negative (Negative); Leukocyte Esterase Negative (Negative); Nitrite Negative (Negative); Specific Gravity <= 1.005 (1.005-1.025); Urobilinogen 0.2 mg/dL (Up to 0.2); pH 6.5 (5-8)
[2024-06-16 16:34] LABS: Bacteria Rare HPF (Negative); C & S Indicated? No; Casts Negative LPF (Negative); Crystals Negative HPF (Negative); Epithelial Cells Negative HPF (Negative); Mucus Negative (Negative)
[2024-06-16 17:45] LABS: Lactate 0.9 mmol/L (0.6-1.4)
[2024-06-16 18:06] LABS: Troponin I < 50 ng/L (< or =60)
--- NOTE | 2024-06-16 18:32 | W.EDPROG ---
Date of service: 06/16/24 Time of Service: 18:32 Medical Decision Making Resting comfortably no acute distress hemodynamically stable no chest pain or shortness of breath no nausea no vomiting no presyncope. Lactate is cleared to normal range. [address] imaging. Patient has received crystalloid fluid hydration. Consider SAIDA in the setting of hypovolemia; must also consider carotid reflux given patient had symptomatology during a golf swing; no evidence of CVA no evidence of aortic dissection. Patient has no symptomatology of PE such as pleuritic chest pain chest pain shortness of breath or leg swelling. No history of thromboembolic disease. Pacemaker functioning appropriately on EKG. Given normal repeat examination reassuring labs and imaging and patient comfort patient be discharged home with strict return precautions patient will follow-up with primary care. Quality:[facility] Health Related Social Needs: No Data to Display Sign Out Sign Out Data: Sign Out Comment: Near syncope, hypotension, resolved with fluids and reassessment. Pending repeat troponin and repeat lactate. Last updated by Silverio Prajapati DO at 06/16/24 17:08 Discharge Plan Disposition Patient Disposition: Home Condition: Improving Discharge Details Chief Complaint: GenMedical Clinical Impression: Blurred vision, Elevated lactic acid level, SAIDA (acute kidney injury) Primary Care Provider: Stephanie Colon ED Provider: Pravin Moore Home Meds and New Rx's Prescriptions: No Action tadalafil 10 mg tablet 10 mg PO DAILY Qty: 90 3RF losartan 50 mg tablet 50 mg PO DAILY Qty: 90 4RF cholecalciferol (vitamin D3) 1,000 UNIT capsule 1,000 unit PO DAILY Discharge Instructions Instructions: Acute Kidney Injury (DC), Dehydration, Adult ED Additional Instructions: Please follow-up closely with your primary care physician. Please return to the emergency department for any worsening symptoms
== END 2024-06-16 18:55 | disposition home or self-care (01) ==
PROVIDERS: Student in an Organized Health Care Education/Training Program; Emergency Provider Emergency Medicine; PCP Family Medicine
DX: H53.8 Other visual disturbances (principal); R03.1 Nonspecific low blood-pressure reading; R79.89 Other specified abnormal findings of blood chemistry; N17.9 Acute kidney failure, unspecified; M54.2 Cervicalgia; R53.1 Weakness; R42 Dizziness and giddiness; Z95.0 Presence of cardiac pacemaker
CPT/HCPCS: 00123; 70496; 70498; 71275; 80053; 84145; 93005; 93308; 96360; 99284; 99285; 81003; 81015; 83605; 83880; 84443; 84484; 85025; 85610; 85730; 93010; 99283; J3490; Q9967

== ENCOUNTER 2024-11-12 13:19 | Outpatient (CLI) | payer MEDICARE, SELFPAY ==
--- NOTE | 2024-11-12 14:03 | DI.RAD_ITS ---
Exam(s) XR CHEST 2V PA LATERAL EXAM: XR CHEST 2V PA LATERAL CLINICAL HISTORY: CHF. TECHNIQUE: 2D digital imaging was performed. COMPARISON: CR XR CHEST 2V PA LATERAL from 02/18/2022 FINDINGS: 2 views: Heart size upper normal. There now bipolar left subclavian pacemaker with lead tips in RA and RV. There is significant infiltrate in left lower lobe and a moderate sized left pleural effusion. No in filtrates in the right lung. Mild blunting of the right costophrenic angle probably indicates a smal l amount of right pleural fluid. Lungs are clear. No infiltrates nor pleural effusions. IMPRESSION: Left lower lobe infiltrate and moderate sized left pleural effusion.Small right pleural effusion. No right-sided infiltrates. Cardiac pacemaker now evident. DATA REPOSITORY: RADIATION DOSE DELIVERED:
== END 2024-11-12 13:39 ==
LOC: DI 13:23
PROVIDERS: PCP Family Medicine; Visit Provider Family Medicine
DX: I50.9 Heart failure, unspecified (principal); J91.8 Pleural effusion in other conditions classified elsewhere
CPT/HCPCS: 36415; 80053; 85027; 71046; 83880

== ENCOUNTER 2024-11-12 14:20 | Outpatient (CLI) | payer MEDICARE, SELFPAY ==
[2024-11-12 13:58] LABS: HCT 43.7 % (40.0-50.0); HGB 13.7 g/dL (13.5-17.5); MCH 29.3 pg (27.0-33.0); MCHC 31.4 % (32.0-36.0); MCV 94 fL (80-95); MPV 9.7 fL (8.0-11.0); Platelet Count 185 10^3/uL (130-400); RBC 4.67 10^6/uL (4.36-5.78); RDW 13.2 % (11.8-14.1); RDW-SD 45.5 fL
[2024-11-12 14:20] LABS: ALT 22 U/L (16-63); AST 22 U/L (15-37); Albumin 3.9 g/dL (3.4-5.0); Alkaline Phosphatase 105 U/L (46-116); BUN 19 mg/dL (7-18); CREATININE 1.2 mg/dL (0.70-1.30); Calcium 9.4 mg/dL (8.5-10.1); Chloride 108 mmol/L (98-107); Estimated GFR 63.46 (mL/min/1.73m2); Glucose 96 mg/dL (74-106); NT-proBNP 3763 pg/mL (<300); Sodium 144 mmol/L (136-145); Total Protein 6.9 g/dL (6.4-8.2)
== END 2024-11-12 14:21 | disposition home or self-care (01) ==
LOC: LBO 14:21
PROVIDERS: PCP Family Medicine; Visit Provider Family Medicine
DX: I50.9 Heart failure, unspecified (principal); I10 Essential (primary) hypertension
CPT/HCPCS: 36415; 80053; 85027; 83880

== ENCOUNTER 2024-11-13 10:52 | Outpatient (CLI) | payer MEDICARE, SELFPAY ==
--- NOTE | 2024-11-13 10:45 | RT.EKG_ITS ---
APPROVED REPORT Exam: Resting ECG Reason for Exam: CHF Patient Location: O HR:63 bpm ECG Measurements Heart Rate 63 AXIS MD 57 P 0 QRSd 115 QRS 39 QT 409 T 213 QTc 419 Conclusion Ventricular-paced rhythm No further analysis attempted due to paced rhythm
== END 2024-11-13 10:53 | disposition home or self-care (01) ==
LOC: DI.CM 10:53
PROVIDERS: PCP Family Medicine; Visit Provider Family Medicine
DX: I50.9 Heart failure, unspecified (principal)
CPT/HCPCS: 93010

== ENCOUNTER 2024-11-16 01:14 | Outpatient (CLI) | payer MEDICARE, SELFPAY ==
--- NOTE | 2024-11-16 07:45 | DI.US_ITS ---
APPROVED REPORT EXAM: Comprehensive 2D, Doppler, and color-flow Echocardiogram Patient Location: Out-Patient Production Crew Supervisor: Cecy Hernandez RDCS (AE) Indications: New CHF Other Information Study Quality: Adequate Conclusion Moderate concentric left ventricular hypertrophy. Ejection fraction is 55 to 60%. Wall motion is no rmal Normal right ventricular size and function Both atria are moderately dilated Device lead noted in the right heart There is no significant valvular disease Ascending aorta measures 3.75 cm Wall motion Left Ventricle The left ventricle is normal size. The left ventricular systolic function is normal. The left ventric ular ejection fraction is within the normal range. Moderate concentric left ventricular hypertrophy. There is normal LV segmental wall motion. There is no ventricular septal defect visualized. LVEF is 5 5%. Right Ventricle Right ventricle is grossly normal in size. Right ventricular systolic function is grossly normal. Pac emaker lead is present in the right ventricle. Atria Left atrium is moderately dilated. Right atrium is moderately dilated. The interatrial septum is inta ct with no evidence for an atrial septal defect. Aortic Valve The aortic valve is normal in structure. Aortic valve is trileaflet. There is no aortic valvular sten osis. No aortic regurgitation is present. Mitral Valve The mitral valve is normal in structure. No evidence of mitral valve stenosis. Trace to mild mitral regurgitation. Tricuspid Valve The tricuspid valve is normal in structure. There is no tricuspid valve stenosis. Trace to mild tricu spid regurgitation. Pulmonic Valve The pulmonary valve is normal in structure. There is no pulmonic valvular stenosis. There is no pulmo david valvular regurgitation. Great Vessels The aortic root is normal in size. The ascending aorta is mildly dilated. Aortic arch is not well vis ualized. IVC is normal in size and collapses >50% with inspiration. Pericardium There is no pericardial effusion. 2D Dimensions IVSD d PLAX 1.42 cm M: 0.6-1.2 Ao Root d 3.63 cm M: 3.1 - 3.7 LVPW d PLAX 1.40 cm M: 0.6 - 1.2 Ao Asc Diam d 3.75 cm M: 2.6 - 3.4 LVID d PLAX 4.73 cm M: 4.2 - 5.8 LVDs 3.38 cm M: 2.5 - 4.0 LV EF Teichholz 55.0 % FS 28.54 % LV EDV (Teich) 103.8 mL LV ESV (Teich) 46.7 mL M-Mode TAPSE 0.92 cm (M/F) >1.7 Auto EF LV EDV A4C 138.6 mL LV EDV A2C 150.6 mL LV EDV BP 144.5 mL LV ESV A4C 62.2 mL LV ESV A2C 67.1 mL LV ESV BP 65.1 mL LVEF(%) A4C 55.1 % LVEF(%) A2C 55.4 % LVEF(%) BP 54.9 % LV SV A4C 76.4 ml LV SV A2C 83.5 ml LV SV BP 79.4 ml LV CO A4C 4.6 L/min LV CO A2C 5.0 L/min LV CO BP 4.8 L/min HR A4C 60.00 BPM HR A2C 59.90 BPM LV EDV Index (BP) LA Volume LA Length A4C 6.0 cm LA Length A2C 5.7 cm LA Area A4C s 26.93 cm2 LA Area A2C s 24.81 cm2 LA Vol A4C A-L 103.00 mL LA Vol A2C A-L 91.53 mL LA Vol Biplane A-L 99.4 mL LA Vol/BSA A4C A-L LA Vol/BSA A2C A-L LA Vol/BSA BP A-L 43.4 mL/m2 LA Vol A4C MOD 94.2 mL LA Vol A2C MOD 85.5 mL LA Vol BP MOD 91.6 mL RA Volume RA Area A4C 25.4 cm2 RA ESV A4C (A-L) 90.4mL RA Vol/BSA A4C A-L RA Length A4C 6.1 cm RA ESV A4C (MOD) 85.8mL LV Diastology MV E Vmax 0.77 (0.4-1.3 m/s) MV A Vmax 0.35 (0.4-1.3 m/s) E/A Ratio 2.2 Aortic Valve AoV Vmax 1.17 m/s LVOT Vmax 0.98 m/s AoV Peak Grad 5.5 mmHg LVOT Peak Grad 3.9 mmHg AoV Area (Vmax) 3.44 cm2 LVOT VTI 0.168 m AoV VTI 0.223 m LVOT Mean Grad 2.0 mmHg AoV Mean Naldo. 0.78 m/s LVOT SV 69.07 mL AoV Mean Grad 2.9 mmHg LVOT Diam s 2.25 cm AoV Area (VTI) 3.09 cm2 AV Regurg Peak Gr. 5.50 mmHg Velocity Ratio 0.84 Mitral Valve MV DT 172 (160-240 msec) MV Vmax TIPS 0.98 m/s MV Mean Grad 1.2 (<2mmHg) MV VTI 0.229 m Pulmonary Valve PV Vmax 1.21 (0.5-1.5 m/s) RVOT Vmax 0.65 m/s PV Peak Grad 5.9 mmHg RVOT Peak Gr. 1.7 mmHg PV Mean Naldo 0.80 m/s RVOT VTI 0.140 m PV Mean Grad 2.9 mmHg RVOT Mean Gr. 0.8 mmHg Tricuspid Valve RA Pressure 3.00 mmHg TR Vmax 2.11 m/s TV S' 0.11 m/s TR Peak Grad 17.7 mmHg RVSP (TR) 20.8 mmHg
== END 2024-11-16 01:34 ==
LOC: DI 01:14
PROVIDERS: PCP Family Medicine; Visit Provider Internal Medicine Cardiovascular Disease
DX: I50.22 Chronic systolic (congestive) heart failure (principal)
CPT/HCPCS: 93306

== ENCOUNTER 2024-11-18 12:06 | Outpatient (CLI) | payer MEDICARE, SELFPAY ==
[2024-11-18 11:56] LABS: ALT 23 U/L (16-63); AST 23 U/L (15-37); Alkaline Phosphatase 116 U/L (46-116); Anion Gap 3.7 mmol/L (3-11); BUN 27 mg/dL (7-18); Bilirubin, Total 1.16 mg/dL (0.2-1.0); CO2 35.3 mmol/L (21.0-32.0); CREATININE 1.3 mg/dL (0.70-1.30); Calcium 9.6 mg/dL (8.5-10.1); Chloride 103 mmol/L (98-107); Estimated GFR 57.65 (mL/min/1.73m2); Glucose 106 mg/dL (74-106); NT-proBNP 1838 pg/mL (<300); Potassium 4.7 mmol/L (3.5-5.1); Sodium 142 mmol/L (136-145); Total Protein 7.4 g/dL (6.4-8.2)
[2024-11-19 13:12] LABS: Albumin 61.2 % (55.8-66.1); Albumin g/dL 4.3 g/dL (3.6-5.2); Total Protein 7.1 g/dL (6.3-8.2)
[2024-11-19 14:25] LABS: Albumin, Urine % 41.6 %; Albumin, Urine mg/dL 7 mg/dL; Globulins, Urine % 58.4 %; Globulins, Urine mg/dL 10 mg/dL; Immunotyping, Urine (See Note); Total Protein Urine 17 mg/dL (See Note)
== END 2024-11-18 12:07 | disposition home or self-care (01) ==
LOC: LBO 12:08
PROVIDERS: PCP Family Medicine; Visit Provider Family Medicine
DX: E03.9 Hypothyroidism, unspecified (principal); I50.9 Heart failure, unspecified; I51.7 Cardiomegaly; I10 Essential (primary) hypertension
CPT/HCPCS: 36415; 80053; 84156; 84166; 86335; 83880; 84165; 84443

== ENCOUNTER 2025-01-03 01:16 | Outpatient (CLI) | payer MEDICARE, SELFPAY ==
--- NOTE | 2025-01-03 07:45 | DI.RAD_ITS ---
Exam(s) XR CHEST 2V PA LATERAL EXAM: XR CHEST 2V PA LATERAL CLINICAL HISTORY: CHF, pleural effusion Left,- ?resolution,I50.9 TECHNIQUE: 2D digital imaging was performed. Two views. COMPARISON: CR XR CHEST 2V PA LATERAL from 02/18/2022 CR XR CHEST 2V PA LATERAL from 11/12/2024 FINDINGS: HEART: Enlarged. Pacemaker. Aorta: Tortuous. PULMONARY VASCULATURE: Normal. MEDIASTINUM: Unremarkable. LUNGS: Left basilar scarring. PLEURAL SPACE: No pleural effusion or pneumothorax. Resolution of pleural effusion. BONE:Degenerative changes in the spine and shoulders. SOFT TISSUES: Mild elevation of the left diaphragm, unchanged from 2021. IMPRESSION: Resolution of left pleural effusion. Minimal residual left basilar scarring. DATA REPOSITORY: RADIATION DOSE DELIVERED:
== END 2025-01-03 01:36 ==
LOC: DI 01:16
PROVIDERS: PCP Family Medicine; Visit Provider Family Medicine
DX: I50.9 Heart failure, unspecified (principal)
CPT/HCPCS: 71046

== ENCOUNTER 2025-03-30 02:01 | Outpatient (CLI) | payer MEDICARE, SELFPAY ==
--- NOTE | 2025-03-30 07:30 | DI.US_ITS ---
APPROVED REPORT EXAM: Comprehensive 2D, Doppler, and color-flow Echocardiogram Patient Location: Out-Patient Wall Worker: Cecy Hernandez RDCS (AE) Other Information Study Quality: Adequate Conclusion Severe concentric left ventricular hypertrophy. Ejection fraction is 55%. There are no segmental wa ll motion abnormalities Mildly enlarged right ventricle, preserved systolic function Moderately enlarged left atrium. Severely enlarged right atrium Device lead noted in the right heart There are no structural valvular abnormalities Mild mitral and tricuspid regurgitation Estimated right ventricular systolic pressure is 32 mmHg Ascending aorta measures 3.89 cm Wall motion Left Ventricle The left ventricle is normal size. The left ventricular systolic function is normal. The left ventric ular ejection fraction is within the normal range. Severe concentric left ventricular hypertrophy. Th ere is normal LV segmental wall motion. There is no ventricular septal defect visualized. LVEF is 55% . Right Ventricle Right ventricle is mildly dilated. Right ventricular systolic function is grossly normal. Pacemaker lead is present in the right ventricle. Atria Left atrium is moderately dilated. Right atrium is severely dilated. The interatrial septum is intact with no evidence for an atrial septal defect. Aortic Valve The aortic valve is normal in structure. Aortic valve is trileaflet. There is no aortic valvular sten osis. No aortic regurgitation is present. Mitral Valve The mitral valve is normal in structure. No evidence of mitral valve stenosis. Mild mitral regurgitat ion. Tricuspid Valve The tricuspid valve is normal in structure. There is no tricuspid valve stenosis. Mild tricuspid regu rgitation. The RVSP is 32.4 mmHg. Pulmonic Valve The pulmonary valve is normal in structure. There is no pulmonic valvular stenosis. Trace pulmonic re gurgitation. Great Vessels The aortic root is normal in size. The ascending aorta is mildly dilated. Aortic arch is normal in ca liber. The IVC collapses <50% with inspiration. Pericardium There is no pericardial effusion. 2D Dimensions IVSD d PLAX 1.49 cm M: 0.6-1.2 Ao Root d 3.67 cm M: 3.1 - 3.7 LVPW d PLAX 1.46 cm M: 0.6 - 1.2 Ao Asc Diam d 3.89 cm M: 2.6 - 3.4 LVID d PLAX 4.67 cm M: 4.2 - 5.8 LVDs 3.50 cm M: 2.5 - 4.0 LV EF Teichholz 49.7 % FS 25.12 % LV EDV (Teich) 101.1 mL LV ESV (Teich) 50.9 mL Auto EF LV EDV A4C 138.4 mL LV EDV A2C 175.6 mL LV EDV BP 155.7 mL LV ESV A4C 77.7 mL LV ESV A2C 87.1 mL LV ESV BP 81.3 mL LVEF(%) A4C 43.9 % LVEF(%) A2C 50.4 % LVEF(%) BP 47.8 % LV SV A4C 60.7 ml LV SV A2C 88.5 ml LV SV BP 74.4 ml LV CO A4C 3.6 L/min LV CO A2C 5.3 L/min LV CO BP 4.5 L/min HR A4C 59.90 BPM HR A2C 59.80 BPM LV EDV Index (BP) LA Volume LA Length A4C 6.9 cm LA Length A2C 6.3 cm LA Area A4C s 30.55 cm2 LA Area A2C s 26.40 cm2 LA Vol A4C A-L 115.54 mL LA Vol A2C A-L 94.43 mL LA Vol Biplane A-L 109.2 mL LA Vol/BSA A4C A-L LA Vol/BSA A2C A-L LA Vol/BSA BP A-L 49.0 mL/m2 LA Vol A4C MOD 109.1 mL LA Vol A2C MOD 87.4 mL LA Vol BP MOD 101.3 mL RA Volume RA Area A4C 25.5 cm2 RA ESV A4C (A-L) 81.1mL RA Vol/BSA A4C A-L RA Length A4C 6.8 cm RA ESV A4C (MOD) 80.7mL LV Diastology MV E' lateral 0.086 (>0.1 m/s) MV E Vmax 0.75 (0.4-1.3 m/s) MV E/E' LAT 8.77 (<14) MV A Vmax 0.35 (0.4-1.3 m/s) E/A Ratio 2.1 Aortic Valve AoV Vmax 0.96 m/s LVOT Vmax 0.69 m/s AoV Peak Grad 3.7 mmHg LVOT Peak Grad 1.9 mmHg AoV Area (Vmax) 2.58 cm2 LVOT VTI 0.133 m AoV VTI 0.192 m LVOT Mean Grad 1.0 mmHg AoV Mean Naldo. 0.63 m/s LVOT SV 47.39 mL AoV Mean Grad 1.9 mmHg LVOT Diam s 2.10 cm AoV Area (VTI) 2.47 cm2 AV Regurg Peak Gr. 3.66 mmHg Velocity Ratio 0.72 Mitral Valve MV DT 152 (160-240 msec) MV Vmax TIPS 0.68 m/s MV Mean Grad 0.7 (<2mmHg) MV VTI 0.155 m Pulmonary Valve PV Vmax 0.94 (0.5-1.5 m/s) RVOT Vmax 0.49 m/s PV Peak Grad 3.5 mmHg RVOT Peak Gr. 1.0 mmHg PV Mean Naldo 0.64 m/s RVOT VTI 0.102 m PV Mean Grad 1.8 mmHg RVOT Mean Gr. 0.6 mmHg Tricuspid Valve RA Pressure 8.00 mmHg TR Vmax 2.47 m/s TR Peak Grad 24.4 mmHg RVSP (TR) 32.4 mmHg
== END 2025-03-30 02:21 ==
LOC: DI 02:02
PROVIDERS: PCP Family Medicine; Visit Provider Internal Medicine Cardiovascular Disease
DX: I51.7 Cardiomegaly (principal)
CPT/HCPCS: 93306

== ENCOUNTER 2025-05-18 03:42 | Outpatient (CLI) | payer MEDICARE, SELFPAY ==
[2025-05-19 10:03] LABS: Kappa Free Light Chain 2.00 mg/dL (0.33-1.94); Lambda Free Light Chain 1.89 mg/dL (0.57-2.63)
== END 2025-05-18 03:43 | disposition home or self-care (01) ==
LOC: LBO 03:42
PROVIDERS: PCP Family Medicine; Visit Provider Specialist
DX: E85.4 Organ-limited amyloidosis (principal)
CPT/HCPCS: 36415; 83883